=== PATIENT | male | born 1995 | race Hispanic/Latino ===

== ENCOUNTER 2020-04-13 11:29 | Emergency (ER) | payer OTHER ==
[~2020-04-13] VITALS: Ht 162.6 cm; Wt 90.7 kg
== END 2020-04-13 14:07 | disposition home or self-care (01) ==
LOC: ED 11:29
PROC: 0HQFXZZ Repair Right Hand Skin, External Approach (ICD-10-PCS; principal; 2020-04-13)
DX: S67.192A Crushing injury of right middle finger, initial encounter (principal); Z23 Encounter for immunization; F17.200 Nicotine dependence, unspecified, uncomplicated; W26.8XXA Contact with other sharp object(s), not elsewhere classified, initial encounter; Y99.0 Civilian activity done for income or pay
CPT/HCPCS: 12001; 73140; 90471; 90715; 99283-25